=== PATIENT | female | born 1940 | race Caucasian/White ===

== ENCOUNTER → 2016-10-23 | Outpatient (CLI) | payer MEDICARE, BC ==
[2014-03-21 09:12] VITALS: BP 97/48
[~2016-10-23] MED LIST: AMLO5TAB2 PO; LISI-334 PO; NITR100C62 PO; NITR50CA11 PO; PROP40TA PO
== END | disposition home or self-care (01) ==
LOC: PMGWOUND 12:50
PROVIDERS: ATTEND Emergency Medicine Undersea and Hyperbaric Medicine
DX: L03.011 Cellulitis of right finger (principal); I10 Essential (primary) hypertension; Z87.891 Personal history of nicotine dependence; Z90.710 Acquired absence of both cervix and uterus
CPT/HCPCS: 97597

== ENCOUNTER → 2016-10-30 | Outpatient (CLI) | payer MEDICARE ==
[2014-03-21 09:12] VITALS: BP 97/48
== END | disposition home or self-care (01) ==
LOC: PMGWOUND 11:52
PROVIDERS: ATTEND Emergency Medicine Undersea and Hyperbaric Medicine
DX: L03.011 Cellulitis of right finger (principal); I10 Essential (primary) hypertension; Z90.710 Acquired absence of both cervix and uterus; Z87.891 Personal history of nicotine dependence
CPT/HCPCS: 99213

== ENCOUNTER → 2019-07-18 | Outpatient (CLI) | payer MEDICARE ==
[2014-03-21 09:12] VITALS: BP 97/48
[~2019-07-18] MED LIST changes: +AMLO5TAB10 PO; -AMLO5TAB2 PO; +APIX5TAB PO; +CALC0.25 PO; +ESTR-113 PO; +FAMO20TA5 PO; +FURO20TA3 PO
== END | disposition home or self-care (01) ==
LOC: LAB 13:58
PROVIDERS: ATTEND Internal Medicine Gastroenterology
DX: Z01.818 Encounter for other preprocedural examination (principal); Z11.59 Encounter for screening for other viral diseases
CPT/HCPCS: C9803; U0003; 36415

== ENCOUNTER → 2019-07-24 | Day surgery (SDC) | payer MEDICARE ==
[~2019-07-24] MED LIST changes: +PROPOFOL 10 MG/ML (20ML) VIAL. IV ONE
[2019-07-24] MEDS: IV RINGERS,LACTATED 1000ML 1,000 ML IV SCH ×2 (07:00→12:05)
[2019-07-24 13:40] VITALS: BP 121/72
--- NOTE | 2019-07-25 17:07 | PATHOLOGY ---
[facility] Accession Number: [id number] . 01 Material submitted: . PART A: duodenum - DUODENAL POLYP BIOPSY PART B: esophagus - DISTAL ESOPHAGEAL BIOPSY. Modifiers: distal . 01 Clinical history: . GERD . 02 Diagnosis: A. Duodenal biopsies, duodenal polyp: - Prominent Khoa's glands with mild nonspecific duodenitis and focal foveolar metaplasia. . B. Esophageal biopsies, distal esophagus: - Reflux esophagitis. (JPM:charles; 07/25/2019) [facility] [place] 07/25/2019 1428 Local . 02 Comment: Sections of the duodenal biopsy reveal segments of duodenal mucosa showing prominent Khoa's glands and mild nonspecific duodenitis with focal foveolar metaplasia. There are no adenomatous changes or evidence of malignancy. . Sections of the distal esophageal biopsy reveal segments of focally tangentially oriented and mildly hyperplastic squamous esophageal mucosa. There is also a polypoid segment of gastric mucosa showing chronic inflammation. The findings are consistent with reflux esophagitis. There is no evidence of Downey's change, dysplasia, or malignancy. (JPM:charles; 07/25/2019) . 02 Electronically signed: . Duke Montilla MD, Pathologist NPI- [id number] . 01 Gross description: . A. The specimen is received in formalin, labeled "Ashleigh Porras, duodenal polyp biopsy". Received are three segments of pale lynn soft tissue ranging in size from 0.2 to 0.4 cm in maximum dimensions. The specimen is submitted entirely in cassette A1. . B. The specimen is received in formalin, labeled "Ashleigh Porras, distal esophageal biopsies". Received are seven segments of pale lynn soft tissue ranging in size from 0.2 to 0.3 cm in maximum dimensions. The specimen is submitted entirely in cassette B1. (CAA; 07/24/2019) QAC/QAC 07/24/2019 1649 Local . 02 Pathologist provided ICD-10: K29.80, K21.0 . 02 CPT . 159856, [id number] Specimen Comment: A courtesy copy of this report has been sent to [phone], [phone] Specimen Comment: [id number] Specimen Comment: Report sent to / DR SILVA Performed at: 01 [facility] [address], [place] [id number] MD Stanley Devine MD Phone: [phone] Performed at: 02 [facility] [address], [place] [id number] MD Duke Montilla MD Phone: [phone]
== END ==
LOC: ENDOS 11:27
PROVIDERS: ATTEND Internal Medicine Gastroenterology
DX: R13.10 Dysphagia, unspecified (principal); K21.0 Gastro-esophageal reflux disease with esophagitis; K29.80 Duodenitis without bleeding; Z88.4 Allergy status to anesthetic agent; Z88.1 Allergy status to other antibiotic agents; Z88.8 Allergy status to other drugs, medicaments and biological substances; Z87.891 Personal history of nicotine dependence; Z90.710 Acquired absence of both cervix and uterus; Z98.51 Tubal ligation status; Z98.890 Other specified postprocedural states
CPT/HCPCS: 43239; 88305; J2704